=== PATIENT | male | born 1955 | race Caucasian/White ===

== ENCOUNTER → 2021-04-14 | Outpatient (CLI) | payer BC | LOC: COL.VAS 11:53 | DX: I71.4 Abdominal aortic aneurysm, without rupture (principal); I35.1 Nonrheumatic aortic (valve) insufficiency | CPT/HCPCS: Q9967 ==

== ENCOUNTER → 2022-03-12 | Outpatient (CLI) | payer BC | LOC: COL.LAB 15:29 | DX: F17.210 Nicotine dependence, cigarettes, uncomplicated (principal) ==

== ENCOUNTER → 2022-04-16 | Outpatient (CLI) | payer BC | LOC: COL.LAB 15:19 | DX: F17.210 Nicotine dependence, cigarettes, uncomplicated (principal) ==